=== PATIENT | female | born 1965 | race Caucasian/White ===

== ENCOUNTER → 2016-04-16 | Outpatient (CLI) | payer OTHER ==
[~2016-04-16] MED LIST: REGADENOSON 0.4 MG/5 ML SYRINGE IV ONE
--- NOTE | 2016-04-16 12:57 | NM ---
EXAMINATION TYPE: NM stress lexiscan cardiolite DATE OF EXAM: 04/16/2016 11:40 AM COMPARISON: NONE HISTORY: Abnormal EKG TECHNIQUE: After the intravenous administration of 10.8 mCi Tc 99m Sestamibi - Cardiolite resting SP ECT images acquired 42 minutes post injection. The patient received 0.4mg Lexiscan, 27.5 mCi Tc 99m Sestamibi - Stress images obtained [address] injection FINDINGS: Review of stress and rest SPECT images demonstrates no distinct perfusion abnormality. Gated analysi s shows normal wall motion with an estimated left ventricular ejection fraction of 48 %. IMPRESSION: No scintigraphic evidence for reversible ischemia.
--- NOTE | 2016-04-16 13:51 | EST ---
DATE OF SERVICE: 04/16/2015 AGE: 50Y SEX: F HT: 68" WT: 150 lbs. Lexiscan Cardiolite Stress Test *Heart Rate Blood Pressure *Rest: 39 Rest: 101/65 * *Max. Achieved: 71 Maximum BP: 114/74 85% PMHR: 144 100% PMHR: 169 *METS: - INDICATIONS: Abnormal EKG. MEDICATIONS: Motrin, Vicodin. CLINICAL INFORMATION: Patient is being screened for her back surgery. History of palpitations, quit smoking 10 years ago. Resting ECG shows sinus bradycardia at the rate of 3 beats per minute with nonspecific ST-T wave changes ( ) Lexiscan. Lexiscan was given IV push followed by serial EKG's without any chest pain or pressure or ST segment deviations indicative of ischemia. Patient's sat rate improved to maximum of 71 beats per minute without any symptoms or ST segment deviations. IMPRESSION: 1. Baseline rhythm is sinus bradycardia with nonspecific ST-T wave changes. 2. Negative Lexiscan Cardiolite study. 3. Nuclear scintigrams to follow from Radiology Department.
== END | disposition home or self-care (01) ==
LOC: RADNMMAIN 09:06
PROVIDERS: ATTEND Internal Medicine
DX: R00.1 Bradycardia, unspecified (principal)
CPT/HCPCS: 93017; 78452; A9500; J2785

== ENCOUNTER → 2017-06-02 | Outpatient (CLI) | payer OTHER ==
--- NOTE | 2017-06-02 10:52 | MR ---
EXAMINATION TYPE: MR shoulder LT wo con DATE OF EXAM: 06/02/2017 COMPARISON: NONE HISTORY: Left shoulder pain TECHNIQUE: Multiplanar, multisequence imaging of the left shoulder is performed without contrast. FINDINGS: Rotator Cuff: There is mild bursal surface fraying of the supraspinatus fibers with minimal increased signal in the insertional fibers related to mild tendinopathy. The infraspinatus, teres minor, and s ubscapularis tendons are of normal signal with unremarkable muscle volume. No evidence of rotator cuf f tear. Acromioclavicular Joint: Minimal acromioclavicular arthropathy is demonstrated as capsular hypertroph y and small marginal osteophytes. No downsloping of the acromion is seen. No evidence of internal imp ingement. Glenohumeral Joint: No joint space narrowing. Glenohumeral joint is unremarkable without marginal ost eophytes. Labrum: There appears to be a subtle anterior superior glenoid labrum tear without displacement altho ugh MR arthrogram could be performed for more accurate assessment. Biceps Tendon: The long head of biceps is in normal location within bicipital groove. There is thicke cristino of the intra-articular portion of the biceps near the biceps anchor insertion. No evidence of te ar. Bone marrow signal: No focal abnormal marrow signal is appreciated. IMPRESSION: 1. No evidence of rotator cuff tear. Mild articular surface fraying of the supraspinatus and mild sup raspinatus tendinosis. 2. Possible anterior superior glenoid labrum tear. This could be confirmed with MR arthrogram if clin ically indicated. 3. Minimal chromic clavicular arthropathy. No evidence of internal impingement.
== END | disposition home or self-care (01) ==
LOC: RADMRIMAIN 09:06
PROVIDERS: ATTEND Orthopaedic Surgery Sports Medicine
DX: M75.82 Other shoulder lesions, left shoulder (principal); M12.9 Arthropathy, unspecified

== ENCOUNTER → 2022-01-22 | Day surgery (SDC) | payer OTHER ==
[~2022-01-22] MED LIST changes: +ATROPINE SULFATE 0.4 MG/ML 1 ML VIAL ONE; +LACTATED RINGERS 1,000 ML IV SCH; +LIDOCAINE 2% INJ 20 MG/ML (2 ML VIAL) ONE; +PROPOFOL 10 MG/ML 20 ML VIAL IV ONE; -REGADENOSON 0.4 MG/5 ML SYRINGE IV ONE
[2022-01-22 10:45] VITALS: RESP 16; TEMP 97.9
[2022-01-22 11:28] LABS: Potassium 3.8 mmol/L (3.5-5.1)
--- NOTE | 2022-01-22 11:51 | P.PCN ---
Date of Procedure: 01/22/22 Procedure(s) Performed: BRIEF HISTORY: Patient is a 56-year-old pleasant email scheduled for an elective colonoscopy as a part of screening for colon cancer. PROCEDURE PERFORMED: Colonoscopy. PREOPERATIVE DIAGNOSIS: Screening for colon cancer. IV sedation per Anesthesia. PROCEDURE: After informed consent was obtained, the patient, was brought into the endoscopy unit. IV sedation was administered by Anesthesia under continuous monitoring. Digital rectal examination was normal. Initially the Olympus CF-160 flexible video colonoscope was then inserted in the rectum, gradually advanced into the cecum without any difficulty. Careful examination was performed as the scope was gradually being withdrawn. Ileocecal valve and the appendiceal orifice were visualized and appeared normal. Prep was excellent. Mucosa of the cecum, ascending colon, transverse colon, descending colon, sigmoid colon, and rectum appeared normal. Retroflexion was performed in the rectum and no lesions were seen. The patient tolerated the procedure well. IMPRESSION: Normal-appearing colon from rectum to cecum with no evidence of colorectal neoplasia. RECOMMENDATIONS: Findings of this examination were discussed with the patient as a family. She was advised to have a repeat screening colonoscopy in 10 years
[2022-01-22 12:23] VITALS: BP 114/76; PULSE 57
== END ==
LOC: ORWHC2ENDO 09:32
PROVIDERS: ATTEND Internal Medicine Gastroenterology
DX: Z12.11 Encounter for screening for malignant neoplasm of colon (principal); I45.81 Long QT syndrome
CPT/HCPCS: 80051; 83735; 45378; J0461; J2704; J2001

== ENCOUNTER → 2022-04-04 | Outpatient (CLI) | payer OTHER ==
--- NOTE | 2022-04-04 13:58 | P.SLEEP ---
History of Present Illness DATE: 04/04/2022 CONSULTATION/NEW PATIENT EVALUATION HISTORY OF PRESENT ILLNESS/SLEEP-WAKE EVALUATION: 56-year-old lady had been ev aluated in the sleep center for possible obstructive sleep apnea hypopnea syndrome. SLEEP SCHEDULE: Usually sleep schedule on working days from 9:30 PM to 4:30 AM, on the weekend from 10 PM to 4 AM. FALLING ASLEEP: Patient has problems with falling asleep, has TV set and bedroom. DURING SLEEP: She usually sleeps on the side position with snoring according to her . Patient wakes up from sleep several times with up to 2 episodes of nocturia No history of hypnogogical hallucinations, sleep paralysis, or cataplexy. DURING THE DAY/WAKE STATE: No significant excessive daytime sleepiness. [place] sleepiness scale is 3. Patient doesn't take naps. PAST MEDICAL HISTORY: Bradycardia with very low heart rate during sleep by results of Holter monitoring. PAST SURGICAL HISTORY: Back surgery about 6 years ago. MEDICATIONS: None at the present time, was on melatonin before. SOCIAL HISTORY: Positive history of smoking for about 20 pack years, quit 18 years ago, alcohol consumption occasional. FAMILY HISTORY: Cancer, emphysema, fibromyalgia. REVIEW OF SYSTEMS: Multiple awakenings from sleep. No fevers. No double vision. No recent chest pain. No shortness of breath. No abdominal pain. No bleeding episodes. No blood in urine. No seizure episodes. PHYSICAL EXAMINATION: GENERAL: A pleasant patient without any distress. VITAL SIGNS: BP 124/72, HR 48, RR 16, weight 160 pounds, height 5 foot 8 inches, body mass index 24.3. HEENT: PERRLA, EOMI. Evaluation of oropharynx showed tongue protrudes midline, low position of soft palate Mallampati 4. NECK: Supple. No JVD. Thyroid is not palpable. 14 inches in circumference. LUNGS: Clear to percussion and to auscultation. Good air exchange. No wheezing or rhonchi. HEART: S1, S2 regular. No murmurs, gallops or rubs. ABDOMEN: Soft and nontender. Bowel sounds are present. No organomegaly appreciated. EXTREMITIES: No clubbing or cyanosis. QUILLER HAND: Awake, alert, and oriented x3. Cranial nerves 2 to 7 intact. There is no fasciculation or atrophy noted. No focal deficits observed. ASSESSMENT: 1. Snoring, multiple awakenings from sleep, extremely low position of soft palate Mallampati 4. Possible obstructive sleep apnea hypopnea syndrome. 2. Bradycardia with very low heart rate during sleep by Holter monitor. 3. Status post back surgery 6 years ago. PLAN: 1. Polysomnography for evaluation of patient's breathing during sleep. 2. CPAP/BiPAP titration if sleep study confirms obstructive sleep apnea- hypopnea syndrome. 3. Preferable position during sleep on the side. 4. No driving if patient feels any sleepiness. Patient is aware of civil and criminal liability for unsafe driving. 5. Sleep hygiene with regular sleep time for at least 7.5-8 hours. 6. Watching weight. Thank you very much for referring this patient for consultation. Sincerely, Jamison Kowalski MD, PhD, FAASM. Diplomat of [place] [employer], Sleep Medicine Board by [place] [employer] [place] [employer] Activities Foul Judge of [facility] [place] Past Medical History Past Medical History: Cancer, Hyperlipidemia Additional Past Medical History / Comment(s): "prolonged QT" caused my many medications per pt, no rx for cholesterol, cervical cancer History of Any Multi-Drug Resistant Organisms: None Reported Past Surgical History: Back Surgery, Hysterectomy Past Anesthesia/Blood Transfusion Reactions: No Reported Reaction Smoking Status: Former smoker - Past Family History Mother Family Medical History: Cancer Medications and Allergies Home Medications Medication Instructions Recorded Confirmed Type Collagen(Dose Unknown) 1 tab PO DAILY 01/21/22 01/21/22 History Vitamin B 12(Dose Unknown) 1 tab PO DAILY 01/21/22 01/21/22 History Vitamin D(Dose Unknown) 1 tab PO DAILY 01/21/22 01/21/22 History Allergies Allergy/AdvReac Type Severity Reaction Status Date / Time heart medications Allergy prolonged Uncoded 01/22/22 10:29 QY Sleep Note - Sleep Note Sleep Note: Temperature: Pulse Rate: Respiratory Rate: Blood Pressure: SpO2: Height: Weight: BMI: Neck Circumference:
== END ==
LOC: SLEEP 13:22
PROVIDERS: ATTEND Internal Medicine
DX: R06.83 Snoring (principal); Z98.890 Other specified postprocedural states; R00.1 Bradycardia, unspecified; Z88.8 Allergy status to other drugs, medicaments and biological substances
CPT/HCPCS: 99211

== ENCOUNTER 2023-09-15 05:58 | Emergency (ER) | payer BC, OTHER ==
[2023-09-15 06:11] VITALS: TEMP 97.5
[2023-09-15] MEDS ORDERED: HEPARIN SODIUM 1,000 UN/ML (10ML VL) IV PRN (06:43)
--- NOTE | 2023-09-15 06:51 | ED ---
Chest Pain HPI - General Chief Complaint: Chest Pain Stated Complaint: SOB Chest Pain Time Seen by Provider: 09/15/23 06:02 Source: patient, RN notes reviewed Mode of arrival: ambulatory Limitations: no limitations - History of Present Illness Initial Comments: 57-year-old female presents emergency department chief complaint of chest pain, shortness of breath. Patient states she woke up around 430 around 5 AM this morning she developed pressure in her chest and shortness of breath she states that she felt her heart was racing she states that seems to be going up and down. Patient states she does have a history of prolonged QT syndrome and sees Dr. Kendrick. Patient states that she has no other cardiac disease denies any current medications. Denies any recent illnesses denies nausea vomiting no fevers chills no dizziness. Patient has no history of A-fib. - Related Data Home Medications Medication Instructions Recorded Confirmed Collagen(Dose Unknown) 1 tab PO DAILY 01/21/22 01/21/22 Vitamin B 12(Dose Unknown) 1 tab PO DAILY 01/21/22 01/21/22 Vitamin D(Dose Unknown) 1 tab PO DAILY 01/21/22 01/21/22 Allergies Allergy/AdvReac Type Severity Reaction Status Date / Time heart medications Allergy prolonged Uncoded 09/15/23 06:02 QY Review of Systems ROS Statement: Those systems with pertinent positive or pertinent negative responses have been documented in the HPI. ROS Other: All systems not noted in ROS Statement are negative. EKG Findings - EKG Comments: EKG Findings:: EKG performed at 6: 10 A-fib with RVR rate of 134 QRS 83 QT/QTc 327/406. Repeat EKG performed at 6: 55 sinus bradycardia rate of 43 CA 208 QRS 84 QT/QTc 481/425 - EKG Results: EKG: interpreted by LYNDSEY Past Medical History Past Medical History: Cancer, Hyperlipidemia Additional Past Medical History / Comment(s): "prolonged QT" caused my many medications per pt, no rx for cholesterol, cervical cancer History of Any Multi-Drug Resistant Organisms: None Reported Past Surgical History: Back Surgery, Hysterectomy Past Anesthesia/Blood Transfusion Reactions: No Reported Reaction Past Psychological History: No Psychological Hx Reported Smoking Status: Former smoker Past Alcohol Use History: Rare Past Drug Use History: None Reported - Past Family History Mother Family Medical History: Cancer General Exam Limitations: no limitations General appearance: alert, in no apparent distress Head exam: Present: atraumatic, normocephalic, normal inspection Eye exam: Present: normal appearance, PERRL, EOMI. Absent: scleral icterus, conjunctival injection, periorbital swelling ENT exam: Present: normal exam, mucous membranes moist Neck exam: Present: normal inspection. Absent: tenderness, meningismus, lymphadenopathy Respiratory exam: Present: normal lung sounds bilaterally. Absent: respiratory distress, wheezes, rales, rhonchi, stridor Cardiovascular Exam: Present: tachycardia, irregular rhythm. Absent: regular rate, normal rhythm GI/Abdominal exam: Present: soft, normal bowel sounds. Absent: distended, tenderness, guarding, rebound, rigid Neurological exam: Present: alert, oriented X3 Skin exam: Present: warm, dry, intact, normal color. Absent: rash Course Vital Signs 09/15/23 09/15/23 06:00 06:55 Temperature 97.5 F L Pulse Rate 129 H 48 L Respiratory 20 18 Rate Blood Pressure 123/82 127/97 O2 Sat by Pulse 98 98 Oximetry Chest Pain MDM - MDM Was pt. sent in by a medical professional or institution (, PA, TARGET MAN, urgent care, hospital, or [place] health care facility...) When possible be specific @ -No Did you speak to anyone other than the patient for history (EMS, parent, family, police, friend...)? What history was obtained from this source @ -No Did you review nursing and triage notes (agree or disagree)? Why? @ -I reviewed and agree with nursing and triage notes Were old charts reviewed (outside hosp., previous admission, EMS record, old EKG, old radiological studies, urgent care reports/EKG's, [place] health care facility records)? Report findings @ -No old charts were reviewed Differential Diagnosis (chest pain, altered mental status, abdominal pain women, abdominal pain men, vaginal bleeding, weakness, fever, dyspnea, syncope, headache, dizziness, GI bleed, back pain, seizure, CVA, palpatations, mental health, musculoskeletal)? @ -Differential Chest Pain: Stable Angina, Unstable Angina, STEMI, NSTEMI Aortic Dissection, Pneumothorax, Musculoskeletal, Esophageal Spasm GERD, Cholecystitis, Pancreatitis, Zoster, this is not meant to be an all-inclusive list. EKG interpreted by me (3pts min.). @ -As above X-rays interpreted by me (1pt min.). @ -Chest Xray shows no acute cardiopulmonary process CT interpreted by me (1pt min.). @ -None done U/S interpreted by me (1pt. min.). @ -None done What testing was considered but not performed or refused? (CT, X-rays, U/S, labs)? Why? @ -None What meds were considered but not given or refused? Why? @ -None Did you discuss the management of the patient with other professionals (professionals i.e. , PA, T[employer] MAN, lab, RT, psych nurse, social welfare clerk, aviation technician aircraft, teacher, chief supply chain officer, residential case manager)? Give summary @ -No Was smoking cessation discussed for >3mins.? @ -No Was critical care preformed (if so, how long)? @ -No Were there social determinants of health that impacted care today? How? (Homelessness, low income, unemployed, alcoholism, drug addiction, transportation, low edu. Level, literacy, decrease access to med. care, custodial, re hab)? @ -No Was there de-escalation of care discussed even if they declined (Discuss DNR or withdrawal of care, Hospice)? DNR status @ -No What co-morbidities impacted this encounter? (DM, HTN, Smoking, COPD, CAD, Cancer, CVA, ARF, Chemo, Hep., AIDS, mental health diagnosis, sleep apnea, morbid obesity)? @ -None Was patient admitted / discharged? Hospital course, mention meds given and route, prescriptions, significant lab abnormalities, going to OR and other pertinent info. @ -Discharge patient presented for chest pressure and shortness of breath related to atrial fibrillation. Patient converted without medications. Patient states she immediately had relief of symptoms and has no complaints currently she is bradycardic which is normal for her she is followed by cardiology. She has no chest pain no dizziness no other symptoms patient is discharged in stable condition return parameters discussed. Patient's score is low does not require anticoagulation. Undiagnosed new problem with uncertain prognosis? @ -No Drug Therapy requiring intensive monitoring for toxicity (Heparin, Nitro, Insulin, Cardizem)? @ -No Were any procedures done? @ -No Diagnosis/symptom? @ -Paroxysmal atrial fibrillation Acute, or Chronic, or Acute on Chronic? @ -Acute Uncomplicated (without systemic symptoms) or Complicated (systemic symptoms)? @ -Complicated Side effects of treatment? @ -No Exacerbation, Progression, or Severe Exacerbation? @ -No Poses a threat to life or bodily function? How? (Chest pain, [place], [place], pneumonia, PE, COPD, DKA, ARF, appy, cholecystitis, CVA, Diverticulitis, Homicidal, Chiquita cidal, threat to staff... and all critical care pts) @ -No Disposition Clinical Impression: Paroxysmal atrial fibrillation Disposition: HOME SELF-CARE Condition: Stable Instructions (If sedation given, give patient instructions): A-fib (Atrial Fibrillation) (ED) Additional Instructions: Please return to the Emergency Department if symptoms worsen or any other concerns. Is patient prescribed a controlled substance at d/c from ED?: No Referrals: Denise Boucher MD [Primary Care Provider] - 1-2 days Time of Disposition: 08:16
[2023-09-15 06:54] LABS: Basophils # (A) 0.1 k/uL (0-0.2); Basophils % (A) 1 %; Eosinophils # (A) 0.3 k/uL (0-0.7); Eosinophils % (A) 4 %; HCT 43.8 % (34.0-46.0); HGB 14.8 gm/dL (11.4-16.0); Lymphocytes # (A) 2.3 k/uL (1.0-4.8); Lymphocytes % (A) 34 %; MCH 33.4 pg (25.0-35.0); MCHC 33.9 g/dL (31.0-37.0); MCV 98.4 fL (80.0-100.0); Mean Platelet Volume 8.4; Monocytes # (A) 0.5 k/uL (0-1.0); Monocytes % (A) 7 %; Neutrophils # (A) 3.6 k/uL (1.3-7.7); Neutrophils % (A) 53 %; Platelet Count 281 k/uL (150-450); RBC 4.45 m/uL (3.80-5.40); RDW 12.2 % (11.5-15.5); WBC 6.8 k/uL (3.8-10.6)
[2023-09-15 07:12] LABS: Partial Thromboplastin Time 25.2 sec (22.0-30.0); Prothrombin Time 10.9 sec (10.0-12.5)
[2023-09-15 07:13] LABS: ALT 23 U/L (4-34); AST 27 U/L (14-36); African American GFR (CKD) >90 (>60 ml/min/1.73 sqM); Albumin 4.9 g/dL (3.5-5.0); Alkaline Phosphatase 101 U/L (38-126); Anion Gap 8 mmol/L; Blood Urea Nitrogen 15 mg/dL (7-17); Calcium 9.8 mg/dL (8.4-10.2); Carbon Dioxide 23 mmol/L (22-30); Chloride 107 mmol/L (98-107); Glucose 99 mg/dL (74-99); Magnesium 1.9 mg/dL (1.6-2.3); Non-African American GFR(CKD) >90 (>60 ml/min/1.73 sqM); Sodium 138 mmol/L (137-145); Total Bilirubin 1.2 mg/dL (0.2-1.3); Total Protein 7.5 g/dL (6.3-8.2)
[2023-09-15] MEDS ORDERED: DILTIAZEM 125 MG in SODIUM CHLORIDE 0.9% 100 ML IV SCH (07:15)
[2023-09-15] MEDS: DILTIAZEM DRIP BOLUS FROM BAG 1 MG SOLN IV ONE (07:15)
[2023-09-15] MEDS: HEPARIN SOD,PORK IN 0.45% NACL 25,000 UNIT in 0.45% NACL 1 250ML.BAG IV SCH (07:15)
--- NOTE | 2023-09-15 07:32 | XR ---
EXAMINATION TYPE: XR chest 2V DATE OF EXAM: 09/15/2023 COMPARISON: None HISTORY: 57-year-old female chest pain and shortness of breath TECHNIQUE: PA and lateral views FINDINGS: Heart borderline enlarged. Mild hyperinflation. No consolidation or pleural effusion. IMPRESSION: Borderline heart size and possible underlying COPD. Clinically correlate. Otherwise, no acute process seen.
[2023-09-15] MEDS: HEPARIN SODIUM 1,000 UN/ML (10ML VL) IV ONE (07:46)
[2023-09-15 13:22] VITALS: BP 130/55; PULSE 55; RESP 14
== END 2023-09-15 08:50 | disposition home or self-care (01) ==
LOC: EC 05:58
DX: I48.0 Paroxysmal atrial fibrillation (principal); I44.4 Left anterior fascicular block; Z87.891 Personal history of nicotine dependence; Z88.8 Allergy status to other drugs, medicaments and biological substances
CPT/HCPCS: 36415; 71046; 80053; 83735; 84484; 85025; 85610; 85730; 93005; 99285

== ENCOUNTER → 2023-10-29 | Outpatient (CLI) | payer BC ==
[2023-10-29 13:23] VITALS: BP 125/78; PULSE 54; RESP 16; TEMP 97.5
--- NOTE | 2023-10-29 13:44 | P.PROGSL ---
Subjective DATE: 02/29/2024 FOLLOW UP VISIT. Patient returned to sleep center for follow-up visit. I saw patient in 2021, at that time she was recommended to proceed with the sleep study, but for different reasons test was not done. Patient continued to have multiple awakenings from sleep with snoring and several episodes of nocturia. Patient has difficulties to initiate sleep and maintain sleep. Positive history of bradycardia, prolonged QT syndrome and recently episodes of tachycardia. . [place] sleepiness scale is 2. MEDICATIONS: None at at the present time. During physical exam: GENERAL: A pleasant patient without any distress. VITAL SIGNS: Please see below, extremely low position of soft palate Mallampati 4. HEENT: PERRLA, EOMI. NECK: Supple. No JVD. LUNGS: Clear to percussion and to auscultation. Good air exchange. No wheezing or rhonchi. HEART: S1, S2 regular. ABDOMEN: Soft and nontender. EXTREMITIES: No clubbing or cyanosis. SUCTION PLATE CARRIER CLEANER: Awake, alert, and oriented x3. No focal deficit. Impressions: 1. Snoring, multiple awakenings from sleep, extremely low position of soft palate. Possible obstructive sleep apnea hypopnea syndrome 2. Difficulties to initiate and maintain sleep, psychophysiological insomnia. 3. Prolonged QT syndrome. 4. Bradycardia. 5. Episodes of tachycardia. 6. Perimenopausal. 7. Status post back surgery 8 years ago. Plan: 1. Home sleep apnea test for evaluation of patient breathing during the sleep. 2. Sleep hygiene with regular time in bed for at least 8 hours. 3. Precautions related to driving. No driving if feel any sleepiness. 4. Stimulus control, no watching TV in bedroom 5. Following plan after reading sleep study. Thank you very much for allowing me to participate in the management of your patient. Jamison Kowalski MD, PhD, FAASM. Diplomat of [employer], Sleep Medicine Board by [employer] Digital Librarian of [facility] [place] cc: Denise Boucher MD Objective - Vital Signs Vital Signs: Vital Signs Temp 97.5 F L 10/29/23 13:22 Pulse 54 L 10/29/23 13:22 Resp 16 10/29/23 13:22 BP 125/78 10/29/23 13:22 Pulse Ox 98 10/29/23 13:22 FiO2 Intake & Output 10/28/23 10/29/23 10/29/23 18:59 06:59 18:59 Weight 70.307 kg Home Medications: Home Medications Medication Instructions Recorded Confirmed Type Collagen(Dose Unknown) 1 tab PO DAILY 01/21/22 01/21/22 History Vitamin B 12(Dose Unknown) 1 tab PO DAILY 01/21/22 01/21/22 History Vitamin D(Dose Unknown) 1 tab PO DAILY 01/21/22 01/21/22 History
== END ==
LOC: 3 N SLEEP 13:09
PROVIDERS: ATTEND Internal Medicine
DX: R06.83 Snoring (principal); F51.04 Psychophysiologic insomnia; R00.1 Bradycardia, unspecified; I45.81 Long QT syndrome; R00.0 Tachycardia, unspecified; Z78.0 Asymptomatic menopausal state; Z98.890 Other specified postprocedural states; Z88.8 Allergy status to other drugs, medicaments and biological substances
CPT/HCPCS: 99212

== ENCOUNTER → 2023-11-04 | Outpatient (CLI) | payer BC ==
--- NOTE | 2023-11-05 10:32 | P.PCN ---
Description of Procedure: CLINICAL: A home sleep apnea test has been done for confirmation of possible obstructive sleep apnea-hypopnea syndrome. DESCRIPTION OF PROCEDURE: RESULTS: Recording time was 9 hours 4 minutes. Evaluation time was 8 hours 52 minutes. Evaluation time is sufficient for making conclusion about results of the test. Raw data of sleep recording has been reviewed and is adequate. Respiratory channel showed 1 apneas and 12 hypopneas. Apnea-hypopnea index was 11.5 per hour. Pulse rate in the range between minimum 40, maximum 69, average 45 by computer calculation. Lowest desaturation was 88%. IMPRESSION: 1. No significant respiratory abnormalities have been documented during home sleep apnea test, normal oxygenation during the test. 2. Bradycardia. Please see other impressions from consultation. PLAN: 1. Sleep hygiene with regular time in bed for at least 8 hours. 2. I will see patient for follow up visit to discuss results of the test. 3. Watching weight. 4. No driving if feeling any sleepiness. Thank you very much for allowing me to participate in the management of your patient. Sincerely, Jamison Kowalski MD, PhD, FAASM Diplomat of [place] [employer] Sleep Medicine Board of [place] [employer] Stars Specialist of [facility] [place] cc: Denise Boucher MD
== END ==
LOC: 3 N SLEEP 17:15
PROVIDERS: ATTEND Internal Medicine
DX: G47.33 Obstructive sleep apnea (adult) (pediatric) (principal); R00.1 Bradycardia, unspecified; I47.9 Paroxysmal tachycardia, unspecified; Z88.8 Allergy status to other drugs, medicaments and biological substances